=== PATIENT | male | born 1970 | race Caucasian/White ===

== ENCOUNTER 2022-06-01 19:37 | Emergency (ER) | payer OTHER ==
[2022-06-01 20:31] VITALS: BP 158/83; PULSE 96; RESP 20; TEMP 98; BMI 34.2
[2022-06-01] MEDS ORDERED: LIDOCAINE 5% TOPICAL PATCH TP ONE (21:28)
[2022-06-01] MEDS ORDERED: METHOCARBAMOL 500 MG TABLET PO ONE (21:28)
[2022-06-01] MEDS ORDERED: IBUPROFEN 600 MG TABLET (FP) PO ONE ×2 (21:28→21:46)
[2022-06-01] MEDS ORDERED: METHOCARBAMOL 500 MG TABLET ONE (21:46)
[2022-06-01] MEDS ORDERED: LIDOCAINE 5% TOPICAL PATCH ONE (21:46)
[2022-06-01] MEDS ORDERED: LIDOCAINE PATCH REMOVAL MC SCH (22:00)
== END 2022-06-01 22:58 | disposition home or self-care (01) ==
LOC: JER 19:37
DX: S80.01XA Contusion of right knee, initial encounter (principal); S39.012A Strain of muscle, fascia and tendon of lower back, initial encounter; V43.53XA Car driver injured in collision with pick-up truck in traffic accident, initial encounter
CPT/HCPCS: 72100-TC-FY; 73560-TC-RT-FY; 99284-25